=== PATIENT | male | born 1960 | race African-American/Black ===

== ENCOUNTER 2019-11-19 14:48 | Inpatient (IN) ==
[2019-11-19] MEDS ORDERED: ALBUTEROL 2.5 MG/3 ML NEB RESP TX PRN (17:48)
[2019-11-19] MEDS ORDERED: MAGNESIUM SULF RIDER 4 GM in PREMIX 1 EACH IV PRN (18:43)
[2019-11-19] MEDS: SODIUM CHLORIDE 0.9% 1,000 ML IV SCH (19:06)
[2019-11-19 20:03] LABS: Basophils % 0.3 % (0.0-0.8); Immature Granulocytes % 0.3 %; Immature Granulocytes Absolute 0.02 #; Lymphocytes # 1.5 10*3/uL (1.4-4.0); Lymphocytes % 23.4 % (21.2-54.2); Mean Corpuscular HGB Conc 34.1 GM/DL (32-36); Mean Corpuscular Volume 90.9 FL (87-102); Mean Platelet Volume 10.6 FL (9.6-12.0); Monocytes % 11.8 % (1.7-12.7); Neutrophils % 64.2 % (38.7-73.9); Platelet Count 116 T/CUMM (130-400); Red Blood Count 4.51 MC/CUMM (3.8-5.5); White Blood Count 6.2 T/CUMM (4-12)
[2019-11-19 20:20] LABS: Albumin 3.8 G/DL (3.4-5.0); Bilirubin,Total 1.2 MG/DL (0.2-1.0); Calcium 9.4 MG/DL (8.5-10.1); Osmolality,Calculated 254.9 MOS/KG (273-304); Total Protein 9.3 G/DL (6.4-8.3)
[2019-11-19] MEDS: MAGNESIUM SULF RIDER 2 GM in PREMIX 1 EACH IV PRN (22:30)
[2019-11-20 05:33] LABS: PT Patient Result 10.7 SECS (9.6-12.2); Partial Thromboplastin Time 27.5 SECS (20.8-36.0)
[2019-11-20 05:37] LABS: Basophils % 0.2 % (0.0-0.8); Eosinophils % 0.2 % (0.00-10.9); Hematocrit 40.5 VOL% (42.0-52.0); Hemoglobin 13.4 GM/DL (14.0-18.0); Immature Granulocytes % 0.4 %; Immature Granulocytes Absolute 0.02 #; Lymphocytes # 1.5 10*3/uL (1.4-4.0); Lymphocytes % 31.1 % (21.2-54.2); Mean Corpuscular HGB Conc 33.1 GM/DL (32-36); Mean Corpuscular Volume 92.7 FL (87-102); Monocytes % 17.7 % (1.7-12.7); Neutrophils % 50.4 % (38.7-73.9); Platelet Count 106 T/CUMM (130-400); Red Blood Count 4.37 MC/CUMM (3.8-5.5); Red Cell Distribution Width 16.3 % (9.3-17.3); White Blood Count 4.9 T/CUMM (4-12)
[2019-11-20 05:44] LABS: Albumin 3.4 G/DL (3.4-5.0); Bilirubin,Total 1.9 MG/DL (0.2-1.0); Calcium 9.4 MG/DL (8.5-10.1); Total Protein 8.5 G/DL (6.4-8.3)
[2019-11-20 05:45] LABS: Osmolality,Calculated 256.8 MOS/KG (273-304)
[2019-11-20 05:55] LABS: Folate 9.7 NG/ML (5.4-24.0)
[2019-11-20 06:13] LABS: Band Neutrophils 1 % (0-10); Eosinophils 1 % (0-10); Hypochromasia Slight; Lymphocytes 32 % (20-55); Platelet Estimate Decreased; Segmented Neutrophils 52 % (50-85); Total Cells Counted 100
[2019-11-20] MEDS: FOLIC ACID 1 MG TABLET PO SCH (08:41)
[2019-11-20] MEDS: MULTIVITAMIN (CENTRUM) TABLET PO SCH (08:41)
[2019-11-20] MEDS: THIAMINE 100 MG TABLET PO SCH (08:41)
[2019-11-20] MEDS: NICOTINE 21 MG/24 HR PATCH TRANSDERM SCH (08:42)
[2019-11-20] MEDS: SODIUM CHLORIDE 0.9% 1,000 ML IV SCH (08:42)
[2019-11-20] MEDS ORDERED: ENOXAPARIN 40 MG/0.4 ML SYRINGE SUBCUT SCH (09:00)
[2019-11-20] MEDS: chlordiazePOXIDE 25 MG CAPSULE PO SCH ×3 (10:42→21:47)
[2019-11-20] MEDS: POTASSIUM CHLORIDE 20 MEQ TABLET PO PRN ×3 (10:42→15:34)
[2019-11-20] MEDS: APIXABAN 5 MG TABLET PO SCH ×2 (10:43→21:47)
[2019-11-20] MEDS: LACTULOSE 20 GM/30 ML UDCUP PO SCH ×2 (12:30→21:48)
[2019-11-20] MEDS ORDERED: POTASSIUM CHLORIDE INJ 20 MEQ in SODIUM CHLORIDE 0.9% 1,000 ML IV SCH (15:54)
[2019-11-20] MEDS: SODIUM CHLOR 0.9% KCL 20 MEQ 20 MEQ/1,000 ML BAG IV SCH (17:41)
[2019-11-20] MEDS: PROPRANOLOL 10 MG TABLET PO SCH (21:47)
[2019-11-21 05:36] LABS: Basophils % 0.6 % (0.0-0.8); Eosinophils # 0.1 10*3/uL (0.0-0.87); Eosinophils % 0.9 % (0.00-10.9); Hematocrit 37.1 VOL% (42.0-52.0); Hemoglobin 12.3 GM/DL (14.0-18.0); Immature Granulocytes % 0.2 %; Immature Granulocytes Absolute 0.01 #; Lymphocytes # 1.7 10*3/uL (1.4-4.0); Lymphocytes % 32.4 % (21.2-54.2); Mean Corpuscular HGB Conc 33.2 GM/DL (32-36); Mean Corpuscular Volume 94.6 FL (87-102); Mean Platelet Volume 11.2 FL (9.6-12.0); Monocytes % 14.3 % (1.7-12.7); Neutrophils % 51.6 % (38.7-73.9); Platelet Count 94 T/CUMM (130-400); Red Blood Count 3.92 MC/CUMM (3.8-5.5); Red Cell Distribution Width 16.4 % (9.3-17.3); White Blood Count 5.4 T/CUMM (4-12)
[2019-11-21 06:02] LABS: Bilirubin,Total 1.3 MG/DL (0.2-1.0); Calcium 8.9 MG/DL (8.5-10.1); Osmolality,Calculated 264.2 MOS/KG (273-304); Total Protein 7.9 G/DL (6.4-8.3)
[2019-11-21] MEDS: LORazepam 2 MG/1 ML VIAL IV PRN ×4 (07:34→17:23)
[2019-11-21] MEDS: SODIUM CHLOR 0.9% KCL 20 MEQ 20 MEQ/1,000 ML BAG IV SCH ×2 (08:04→23:57)
[2019-11-21] MEDS: POTASSIUM CHLORIDE 20 MEQ TABLET PO PRN ×4 (08:26→14:20)
[2019-11-21] MEDS: PROPRANOLOL 10 MG TABLET PO SCH ×3 (08:26→21:37)
[2019-11-21] MEDS: LACTULOSE 20 GM/30 ML UDCUP PO SCH (08:26)
[2019-11-21] MEDS: MULTIVITAMIN (CENTRUM) TABLET PO SCH (08:26)
[2019-11-21] MEDS: chlordiazePOXIDE 25 MG CAPSULE PO SCH ×3 (08:26→21:37)
[2019-11-21] MEDS: NICOTINE 21 MG/24 HR PATCH TRANSDERM SCH (08:26)
[2019-11-21] MEDS: MAGNESIUM SULF RIDER 2 GM in PREMIX 1 EACH IV PRN (08:27)
[2019-11-21] MEDS: FOLIC ACID 1 MG TABLET PO SCH (08:27)
[2019-11-21] MEDS: THIAMINE 100 MG TABLET PO SCH (08:27)
[2019-11-21] MEDS: APIXABAN 5 MG TABLET PO SCH ×2 (08:27→21:37)
[2019-11-21 08:35] LABS: Schistocytes Slight; Target Cells Few
[2019-11-21 08:36] LABS: Platelet Estimate Adequate
[2019-11-21] MEDS ORDERED: LORazepam 2 MG/1 ML VIAL IV STA (12:44)
[2019-11-21] MEDS: PANTOPRAZOLE 40 MG TABLET PO SCH (14:20)
[2019-11-21] MEDS ORDERED: hydrALAZINE 20 MG/1 ML VIAL IV PRN (16:53)
[2019-11-21] MEDS: ALBUTEROL/IPRATROPIUM 3 ML NEB RESP TX SCH (20:21)
[2019-11-22] MEDS: ALBUTEROL/IPRATROPIUM 3 ML NEB RESP TX SCH ×4 (00:15→20:03)
[2019-11-22] MEDS: LORazepam 2 MG/1 ML VIAL IV PRN (01:03)
[2019-11-22] MEDS: PANTOPRAZOLE 40 MG TABLET PO SCH (08:47)
[2019-11-22] MEDS: PROPRANOLOL 10 MG TABLET PO SCH ×3 (08:47→20:58)
[2019-11-22] MEDS: NICOTINE 21 MG/24 HR PATCH TRANSDERM SCH (08:48)
[2019-11-22] MEDS: THIAMINE 100 MG TABLET PO SCH (08:48)
[2019-11-22] MEDS: chlordiazePOXIDE 25 MG CAPSULE PO SCH ×3 (08:48→20:58)
[2019-11-22] MEDS: APIXABAN 5 MG TABLET PO SCH ×2 (08:48→20:57)
[2019-11-22] MEDS: MULTIVITAMIN (CENTRUM) TABLET PO SCH (08:48)
[2019-11-22] MEDS: FOLIC ACID 1 MG TABLET PO SCH (08:48)
[2019-11-22 09:15] LABS: Basophils % 0.5 % (0.0-0.8); Eosinophils # 0.1 10*3/uL (0.0-0.87); Eosinophils % 1.3 % (0.00-10.9); Hematocrit 38.9 VOL% (42.0-52.0); Hemoglobin 12.8 GM/DL (14.0-18.0); Immature Granulocytes % 0.2 %; Immature Granulocytes Absolute 0.01 #; Lymphocytes # 1.7 10*3/uL (1.4-4.0); Lymphocytes % 29.9 % (21.2-54.2); Mean Corpuscular HGB Conc 32.9 GM/DL (32-36); Mean Corpuscular Volume 95.3 FL (87-102); Mean Platelet Volume 11.8 FL (9.6-12.0); Monocytes % 14.3 % (1.7-12.7); Neutrophils % 53.8 % (38.7-73.9); Platelet Count 104 T/CUMM (130-400); Red Blood Count 4.08 MC/CUMM (3.8-5.5); Red Cell Distribution Width 16.4 % (9.3-17.3); White Blood Count 5.6 T/CUMM (4-12)
[2019-11-22 09:34] LABS: Albumin 3.1 G/DL (3.4-5.0); Bilirubin,Total 0.8 MG/DL (0.2-1.0); Calcium 9.2 MG/DL (8.5-10.1); Osmolality,Calculated 268.8 MOS/KG (273-304); Total Protein 7.8 G/DL (6.4-8.3)
[2019-11-22] MEDS: MAGNESIUM SULF RIDER 2 GM in PREMIX 1 EACH IV PRN (10:22)
[2019-11-22] MEDS: POTASSIUM CHLORIDE 20 MEQ TABLET PO PRN (10:22)
[2019-11-22] MEDS ORDERED: ONDANSETRON 4 MG/2 ML VIAL IV PRN (19:25)
[2019-11-22] MEDS: SODIUM CHLOR 0.9% KCL 20 MEQ 20 MEQ/1,000 ML BAG IV SCH (19:29)
[2019-11-23] MEDS: ALBUTEROL/IPRATROPIUM 3 ML NEB RESP TX SCH ×4 (01:39→19:26)
[2019-11-23 07:47] LABS: Basophils % 0.3 % (0.0-0.8); Eosinophils # 0.1 10*3/uL (0.0-0.87); Eosinophils % 1.5 % (0.00-10.9); Immature Granulocytes % 0.3 %; Immature Granulocytes Absolute 0.02 #; Red Cell Distribution Width 16.6 % (9.3-17.3)
[2019-11-23 08:01] LABS: Hematocrit 34.7 VOL% (42.0-52.0); Lymphocytes # 2.1 10*3/uL (1.4-4.0); Lymphocytes % 33.7 % (21.2-54.2); Mean Corpuscular HGB Conc 30.8 GM/DL (32-36); Mean Corpuscular Volume 99.7 FL (87-102); Mean Platelet Volume 11.7 FL (9.6-12.0); Monocytes % 11.4 % (1.7-12.7); Neutrophils % 52.8 % (38.7-73.9); Platelet Count 110 T/CUMM (130-400); Red Blood Count 3.48 MC/CUMM (3.8-5.5); White Blood Count 6.1 T/CUMM (4-12)
[2019-11-23 08:02] LABS: Hemoglobin 10.7 GM/DL (14.0-18.0)
[2019-11-23 08:12] LABS: Calcium 8.9 MG/DL (8.5-10.1); Osmolality,Calculated 270.8 MOS/KG (273-304)
[2019-11-23] MEDS: NICOTINE 21 MG/24 HR PATCH TRANSDERM SCH (08:31)
[2019-11-23] MEDS: THIAMINE 100 MG TABLET PO SCH (08:32)
[2019-11-23] MEDS: MULTIVITAMIN (CENTRUM) TABLET PO SCH (08:32)
[2019-11-23] MEDS: FOLIC ACID 1 MG TABLET PO SCH (08:32)
[2019-11-23] MEDS: APIXABAN 5 MG TABLET PO SCH ×2 (08:32→20:30)
[2019-11-23] MEDS: PANTOPRAZOLE 40 MG TABLET PO SCH (08:32)
[2019-11-23] MEDS: PROPRANOLOL 10 MG TABLET PO SCH ×3 (08:33→20:30)
[2019-11-23] MEDS: chlordiazePOXIDE 25 MG CAPSULE PO SCH ×3 (09:38→20:30)
[2019-11-24] MEDS: ALBUTEROL/IPRATROPIUM 3 ML NEB RESP TX SCH ×4 (00:11→19:40)
[2019-11-24 05:01] LABS: INR 0.9; PT Patient Result 10.1 SECS (9.6-12.2)
[2019-11-24 05:21] LABS: Calcium 8.8 MG/DL (8.5-10.1); Osmolality,Calculated 271.8 MOS/KG (273-304)
[2019-11-24] MEDS: APIXABAN 5 MG TABLET PO SCH ×2 (08:34→20:46)
[2019-11-24] MEDS: MULTIVITAMIN (CENTRUM) TABLET PO SCH (08:34)
[2019-11-24] MEDS: NICOTINE 21 MG/24 HR PATCH TRANSDERM SCH (08:34)
[2019-11-24] MEDS: chlordiazePOXIDE 25 MG CAPSULE PO SCH ×3 (08:34→20:46)
[2019-11-24] MEDS: THIAMINE 100 MG TABLET PO SCH (08:34)
[2019-11-24] MEDS: FOLIC ACID 1 MG TABLET PO SCH (08:34)
[2019-11-24] MEDS: PANTOPRAZOLE 40 MG TABLET PO SCH (08:35)
[2019-11-24] MEDS: PROPRANOLOL 10 MG TABLET PO SCH ×3 (08:35→20:46)
[2019-11-24] MEDS: MAGNESIUM SULF RIDER 2 GM in PREMIX 1 EACH IV PRN (12:57)
[2019-11-25] MEDS: ALBUTEROL/IPRATROPIUM 3 ML NEB RESP TX SCH ×2 (00:52→06:46)
[2019-11-25] MEDS: NICOTINE 21 MG/24 HR PATCH TRANSDERM SCH (08:25)
[2019-11-25] MEDS: MULTIVITAMIN (CENTRUM) TABLET PO SCH (08:25)
[2019-11-25] MEDS: FOLIC ACID 1 MG TABLET PO SCH (08:25)
[2019-11-25] MEDS: PROPRANOLOL 10 MG TABLET PO SCH (08:26)
[2019-11-25] MEDS: THIAMINE 100 MG TABLET PO SCH (08:26)
[2019-11-25] MEDS: chlordiazePOXIDE 25 MG CAPSULE PO SCH (08:26)
[2019-11-25] MEDS: APIXABAN 5 MG TABLET PO SCH (08:26)
[2019-11-25 12:17] VITALS: BP 120/61
== END 2019-11-25 15:11 | DRG 897 ==
LOC: N.CC 17:28 → SUATTDRO 17:28 → N.2E 11-23 18:32
PROVIDERS: ADMIT Internal Medicine; ATTEND Internal Medicine